=== PATIENT | female | born 1990 | race Caucasian/White ===

== ENCOUNTER 2016-06-25 15:29 | Emergency (ER) | payer MEDICARE | END 2016-06-25 17:05 | disposition home or self-care (01) | LOC: ER1 15:29 | DX: S62.91XD Unspecified fracture of right hand, subsequent encounter for fracture with routine healing (principal); W22.01XD Walked into wall, subsequent encounter; F17.210 Nicotine dependence, cigarettes, uncomplicated | CPT/HCPCS: 29125; 99283 ==